=== PATIENT | female | born 2000 | race Caucasian/White ===

== ENCOUNTER 2018-06-16 00:27 | Emergency (ER) | payer MEDICAID ==
[~2018-06-16] VITALS: Ht 165.1 cm; Wt 50.0 kg
[2018-06-16] MEDS ORDERED: PENI500T2 PO (00:56)
[2018-06-16 01:03] VITALS: BP 117/77
== END 2018-06-16 01:05 | disposition home or self-care (01) ==
LOC: ER 00:27
DX: L02.91 Cutaneous abscess, unspecified (principal); Z79.899 Other long term (current) drug therapy
CPT/HCPCS: 99283

== ENCOUNTER 2018-09-21 22:25 | Emergency (ER) | payer MEDICAID ==
[~2018-09-21] VITALS: Ht 165.1 cm; Wt 44.6 kg
[2018-09-21 22:30] VITALS: BP 109/74
[2018-09-21 23:10] LABS: BASOPHILS # (AUTO) 0.1 X10'3 (0-0.2); BASOPHILS % (AUTO) 0.6 % (0-1); EOSINOPHILS # (AUTO) 0.6 X10'3 (0-0.9); EOSINOPHILS % (AUTO) 7.4 % (0-6); HEMATOCRIT 42.9 % (35.0-45.0); HEMOGLOBIN 14.3 g/dl (12.0-16.0); LYMPHOCYTES # (AUTO) 2.4 X10'3 (1.1-4.8); LYMPHOCYTES % (AUTO) 28.6 % (21-51); MEAN CORPUSCULAR HEMOGLOBIN 25.4 PG (27.0-31.0); MEAN CORPUSCULAR HGB CONC 33.2 g/dL (33.0-36.5); MEAN CORPUSCULAR VOLUME 76.4 FL (78-98); MEAN PLATELET VOLUME 8.2 FL (7.4-10.4); MONOCYTES # (AUTO) 0.5 X10'3 (0-0.9); MONOCYTES % (AUTO) 6.1 % (2-12); NEUTROPHILS # (AUTO) 4.9 X10'3 (1.8-7.7); NEUTROPHILS % (AUTO) 57.3 % (42-75); PLATELET COUNT 348 X10'3 (140-440); RED BLOOD COUNT 5.62 X10'6 (4.20-5.60); RED CELL DISTRIBUTION WIDTH 16.3 % (11.5-14.5); WHITE BLOOD COUNT 8.5 X10'3 (4.5-11.0)
[2018-09-21 23:10] LABS: URINE HCG NEGATIVE (NEG)
[2018-09-21 23:20] LABS: CLARITY,URINE CLEAR (Clear); COLOR,URINE YELLOW (Yellow); GLUCOSE, URINE NEGATIVE (Neg); KETONES,URINE NEGATIVE (Neg); LEUKOCYTE ESTERASE ,URINE NEGATIVE (Neg); NITRITES, URINE NEGATIVE (Neg); OCCULT BLOOD,URINE NEGATIVE (Neg); PROTEIN,URINE NEGATIVE (Neg); UROBILINOGEN,URINE 0.2 E.U/dL (0.2-1.0)
[2018-09-21 23:30] LABS: UA COLLECTION TYPE VOIDED
[2018-09-21 23:47] LABS: INR 1.1 INR
[2018-09-22 00:07] LABS: ALANINE AMINOTRANSFERASE 30 U/L (12-78); ALBUMIN 3.7 G/DL (3.4-5.0); ALKALINE PHOSPHATASE 143 IU/L (20-180); ANION GAP 7 (8-16); BILIRUBIN,TOTAL 0.2 MG/DL (0.1-1.0); BLOOD UREA NITROGEN 6 MG/DL (7-18); CHLORIDE 107 MMOL/L (99-107); GLUCOSE 83 MG/DL (70-104); POTASSIUM 3.5 MMOL/L (3.5-5.1); SODIUM 142 MMOL/L (135-145); TOTAL CARBON DIOXIDE 28.4 MMOL/L (24-32); TOTAL PROTEIN 7.3 G/DL (6.4-8.2); eGFR > 90 ML/MIN
[2018-09-22 00:23] LABS: ASPARTATE AMINO TRANSFERASE 18 U/L (10-37)
== END 2018-09-22 00:37 | disposition home or self-care (01) ==
LOC: ER 22:26
DX: R10.31 Right lower quadrant pain (principal); R42 Dizziness and giddiness; R11.0 Nausea
CPT/HCPCS: 36415; 80053; 81003; 81025; 85025; 85610; 93005; 99283; 99284

== ENCOUNTER 2024-09-01 23:08 | Emergency (ER) | payer MEDICAID ==
[~2024-09-01] VITALS: Ht 165.1 cm; Wt 45.5 kg
[2024-09-01] MEDS ORDERED: iohexol 350MG/ML 100ml bottle IV ONE (23:30)
[2024-09-02 01:30] VITALS: BP 106/66; PULSE 76; RESP 16; TEMP 98.5; O2SAT 94
== END 2024-09-02 01:33 ==
LOC: ER 23:08
DX: R51.9 Headache, unspecified (principal); V89.2XXA Person injured in unspecified motor-vehicle accident, traffic, initial encounter; Y92.410 Unspecified street and highway as the place of occurrence of the external cause; Y92.89 Other specified places as the place of occurrence of the external cause; Y99.8 Other external cause status
CPT/HCPCS: 70450; 72125; 99284; 99285; Q9967